=== PATIENT | female | born 1985 ===

== ENCOUNTER 2018-03-06 17:43 | Emergency (ER) | payer OTHER ==
[2018-03-06 17:53] VITALS: BP 133/77; PULSE 84; RESP 18; TEMP 98.3; O2SAT 99
--- NOTE | 2018-03-06 18:51 | ED PDOC ---
HPI: Back Time Seen by Provider: 03/06/18 17:57 Chief Complaint (Nursing): Back Pain Chief Complaint (Provider): Bilateral lower back pain x 2 days History Per: Patient History/Exam Limitations: no limitations Onset/Duration Of Symptoms: Days Current Symptoms Are (Timing): Still Present Full Body Front + Back: 1 - Pain Quality Of Discomfort: Stabbing Description Of Injury (Context): PT was stepping up onto bus with suitcase and child in arm Severity: Moderate Previous Symptoms: None Associated Symptoms: None Exacerbating Factor(s): Movement Additional Complaint(s): Pt has been taking Tylenol at home without relief. No similar in the past. Past Medical History Reviewed: Historical Data, Nursing Documentation, Vital Signs Vital Signs: Last Vital Signs Temp 98.3 F 03/06/18 17:51 Pulse 84 03/06/18 17:51 Resp 18 03/06/18 17:51 BP 133/77 03/06/18 17:51 Pulse Ox 99 03/06/18 17:51 - Medical History PMH: No Chronic Diseases - Surgical History Surgical History: No Surg Hx - Family History Family History: States: No Known Family Hx - Living Arrangements Living Arrangements: With Family - Social History Current smoker - smoking cessation education provided: No - Home Medications Home Medications: Ambulatory Orders Medication Instructions Recorded Cyclobenzaprine [Cyclobenzaprine 10 mg PO Q8H PRN #12 tab 03/06/18 HCl] Ibuprofen [Motrin Tab] 800 mg PO Q6H PRN #20 tab 03/06/18 - Allergies Allergies/Adverse Reactions: Allergies Allergy/AdvReac Type Severity Reaction Status Date / Time No Known Allergies Allergy Verified 03/06/18 17:51 Review of Systems ROS Statement: Except As Marked, All Systems Reviewed And Found Negative Constitutional: Negative for: Fever, Chills Genitourinary Female: Negative for: Dysuria, Frequency Musculoskeletal: Positive for: Back Pain Physical Exam - Reviewed Nursing Documentation Reviewed: Yes Vital Signs Reviewed: Yes - Physical Exam Appears: Positive for: Well, Non-toxic, No Acute Distress Head Exam: Positive for: ATRAUMATIC, NORMAL INSPECTION, NORMOCEPHALIC Skin: Positive for: Normal Color, Warm, DRY Eye Exam: Positive for: Normal appearance ENT: Positive for: Normal ENT Inspection Neck: Positive for: Normal, Painless ROM Cardiovascular/Chest: Positive for: Regular Rate, Rhythm Respiratory: Positive for: CNT, Normal Breath Sounds Back: Positive for: Normal Inspection, Vertebral Tenderness Extremity: Positive for: Normal ROM Neurologic/Psych: Positive for: Alert, Oriented - ECG O2 Sat by Pulse Oximetry: 99 Medical Decision Making Medical Decision Making: Pt reports feeling better on re-evaluation. LS - without acute fracture or dislocation Disposition - Clinical Impression Clinical Impression: Low back pain - Patient ED Disposition Is Patient to be Admitted: No Counseled Patient/Family Regarding: Diagnosis, Need For Followup, Rx Given - Disposition Disposition: Routine/Home Disposition Time: 20:09 Condition: GOOD Prescriptions: Cyclobenzaprine [Cyclobenzaprine HCl] 10 mg PO Q8H PRN #12 tab PRN Reason: Muscle Spasm Ibuprofen [Motrin Tab] 800 mg PO Q6H PRN #20 tab PRN Reason: Pain Instructions: Low Back Pain in Adults Forms: [facility] (Surinamese)
--- NOTE | 2018-03-07 08:15 | RAD ---
PROCEDURE: Radiographs of the Lumbar Spine. HISTORY: Back pain COMPARISON: No prior. FINDINGS: BONES: There is normal alignment of the lumbar vertebral bodies. There is normal lumbar lordosis. Vertebral height is normal. Bone mineralization is normal. There is no acute fracture, spondylolysis or spondylolisthesis. DISC SPACES: There is mild degenerative disc disease at L4-5 and L5-S1. The remaining disc heights are maintained. OTHER FINDINGS: None. IMPRESSION: No acute fracture, spondylolysis or spondylolisthesis. Mild degenerative disc disease at L4-5 and L5-S1.
== END 2018-03-06 20:19 | disposition home or self-care (01) ==
LOC: H.ER 17:43
DX: M54.5 Low back pain (principal)

== ENCOUNTER 2018-04-02 21:28 | Emergency (ER) | payer OTHER ==
[2018-04-02 22:05] VITALS: BP 106/76; PULSE 105; RESP 18; TEMP 98.4; O2SAT 98
[2018-04-02] MEDS ORDERED: Sodium Chloride 0.9% 1,000 ML IV STA (23:06)
--- NOTE | 2018-04-02 23:17 | ED PDOC ---
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 states today she developed diffuse crampy abdominal pain with multiple episodes of non-bloody vomiting (10 episodes) and non-bloody diarrhea (unknown amount). Further states that her 1 y/o also had similar symptoms on Thursday which have resolved. Denies fever, recent travel, hematemesis, melena, hematochezia, BRBPR, previous abd surgeries. Past Medical History Reviewed: Historical Data, Nursing Documentation, Vital Signs Vital Signs: Last Vital Signs Temp 98.4 F 04/02/18 22:01 Pulse 105 H 04/02/18 22:01 Resp 18 04/02/18 22:01 BP 106/76 04/02/18 22:01 Pulse Ox 98 04/02/18 23:18 - Surgical History Surgical History: No Surg Hx - Family History Family History: States: No Known Family Hx - Home Medications Home Medications: Ambulatory Orders Medication Instructions Recorded Cyclobenzaprine [Cyclobenzaprine 10 mg PO Q8H PRN #12 tab 03/06/18 HCl] Ibuprofen [Motrin Tab] 800 mg PO Q6H PRN #20 tab 03/06/18 Dicyclomine [Bentyl] 20 mg PO Q8 PRN #15 tab 04/03/18 Ondansetron [Zofran Odt] 4 mg PO Q8 PRN #15 odt 04/03/18 - Allergies Allergies/Adverse Reactions: Allergies Allergy/AdvReac Type Severity Reaction Status Date / Time No Known Allergies Allergy Verified 04/02/18 22:01 Review of Systems ROS Statement: Except As Marked, All Systems Reviewed And Found Negative Gastrointestinal: Positive for: Nausea, Vomiting, Abdominal Pain, Diarrhea Physical Exam - Physical Exam Appears: Positive for: Well, Non-toxic, No Acute Distress Skin: Positive for: Normal Color, Warm. Negative for: Rash Eye Exam: Positive for: Normal appearance. Negative for: Scleral icterus Cardiovascular/Chest: Positive for: Regular Rate, Rhythm Respiratory: Positive for: Normal Breath Sounds. Negative for: Respiratory Distress Gastrointestinal/Abdominal: Positive for: Normal Exam, Bowel Sounds, Soft. Negative for: Tenderness (to deep palpation) Back: Positive for: Normal Inspection. Negative for: L CVA Tenderness, R CVA Tenderness Neurologic/Psych: Positive for: Alert, Oriented. Negative for: Aphasia, Facial Droop - Laboratory Results Result Diagrams: 04/02/18 23:31 04/02/18 23:31 - ECG O2 Sat by Pulse Oximetry: 98 - Progress ED Course And Treament: Labs, bentyl 20mg PO, pepcid 40mg IV, IV NS bolus x 1, zofran 4mg ODT ordered. 0151 On re-evaluation, pt. reports feeling much better. Alexa coroner technician present as rn advanced. Tolerating PO fluids in ED. Abd soft and non-tender. Informed of elevated LFTs. States that she drinks alcohol may be once a week 5- 6 drinks. Denies hx of liver disease. Advised to f/u with [facility] or [facility] for further evaluation of LFTs. Case and labs d/w Dr. Mitchell who agrees with care. Disposition - Clinical Impression Clinical Impression: Gastroenteritis - Patient ED Disposition Is Patient to be Admitted: No - Disposition Referrals: [facility] [Outside] [facility] [Outside] Disposition: Routine/Home Disposition Time: 01:54 Condition: IMPROVED Additional Instructions: Follow up with [facility] for further evaluation. Return to ED immediately if symptoms worsen. Prescriptions: Dicyclomine [Bentyl] 20 mg PO Q8 PRN #15 tab PRN Reason: abdominal pain Ondansetron [Zofran Odt] 4 mg PO Q8 PRN #15 odt PRN Reason: Nausea/Vomiting Instructions: Gastroenteritis (ED) Forms: [facility] (Khmer) Print Language: SLOVAK
[2018-04-02 23:34] LABS: BASO % 0.4 % (0.0-2.0); EOS % 0.2 % (0.0-4.0); LYMPH # 0.5 K/uL (1.0-4.3); LYMPH % 5.2 % (20.0-40.0); MEAN CELL VOLUME 94.1 fl (81.0-99.0); MEAN CORPUSCULAR HGB CONC 34.1 g/dL (33.0-37.0); MEAN PLATELET VOLUME 9.1 fl (7.2-11.7); MONO # 0.3 K/uL (0.0-0.8); MONO % 3.1 % (0.0-10.0); NEUT # 8.4 K/uL (1.8-7.0); NEUT % 91.1 % (50.0-75.0); PLATELET COUNT 324 K/uL (130-400); RBC 4.68 Mil/uL (3.80-5.20); WHITE BLOOD COUNT 9.2 K/uL (4.8-10.8)
[2018-04-02 23:45] LABS: ALB/GLOB RATIO 1.1 (1.0-2.1); ALBUMIN 5.2 g/dL (3.5-5.0); ALT/SGPT 333 U/L (9-52); AST/SGOT 489 U/L (14-36); BLOOD UREA NITROGEN 15 mg/dl (7-17); CALCIUM 9.4 mg/dL (8.4-10.2); GFR AFRICAN-AMERICAN > 60; GFR NON-AFRICAN AMERICAN > 60; LIPASE 74 U/L (23-300)
[2018-04-02 23:45] LABS: VENOUS BLOOD GAS BASE EXCESS -5.2 mmol/L (0.0-2.0); VENOUS BLOOD GAS PCO2 43 mmHg (40-60); VENOUS BLOOD GAS PO2 28 mm/Hg (30-55)
[2018-04-03 01:39] LABS: ANISOCYTOSIS SLIGHT; BANDS 1 % (0-2); EOSINOPHIL 1 % (0-7); HYPOCHROMIC MODERATE; LYMPHOCYTE 2 % (20-50); MONOCYTE 4 % (0-10); NEUTROPHIL 91 % (42-75); PLATELET ESTIMATE NORMAL (NORMAL); REACTIVE LYMPHOCYTES 1 % (0-0); TOTAL CELLS COUNTED 100
[2018-04-03 01:40] LABS: STOMATOCYTES SLIGHT
== END 2018-04-03 02:15 | disposition home or self-care (01) ==
LOC: H.ER 21:28
DX: K52.9 Noninfective gastroenteritis and colitis, unspecified (principal)
CPT/HCPCS: 80053; 81025; 82803; 83690; 85025; 96361; 96374; 99282; J7040